=== PATIENT | male | born 1970 | race African-American/Black ===

== ENCOUNTER 2021-03-13 12:49 | Inpatient (IN) | payer OTHER ==
[2021-03-13 15:47] VITALS: BMI 38.0
[2021-03-13] MEDS ORDERED: ACETAMINOPHEN 325 MG TABLET (FP) PO PRN ×2 (19:40)
[2021-03-13] MEDS ORDERED: MAG HYDROX/AL HYDROX/SIMETH 30 ML UNIT-DOSE CUP PO PRN (19:40)
[2021-03-13] MEDS ORDERED: NICOTINE 10 MG CARTRIDGE (INHALER) IH PRN (19:40)
[2021-03-13] MEDS ORDERED: diazePAM 5 MG TABLET PO PRN (19:40)
[2021-03-13] MEDS ORDERED: MAGNESIUM HYDROX 2400MG/30ML ORAL SUSPENSION 30 ML CUP PO PRN (19:40)
[2021-03-13] MEDS ORDERED: IBUPROFEN 400 MG TABLET (FP) PO PRN (19:40)
[2021-03-13] MEDS ORDERED: MAGNESIUM CITRATE 300 ML BOTTLE PO PRN (19:40)
[2021-03-13] MEDS ORDERED: ONDANSETRON *ODT* 4 MG TABLET SL PRN (19:40)
[2021-03-13] MEDS ORDERED: BISMUTH SUBSALICYLATE 524 MG/30 ML PO PRN (19:40)
[2021-03-13] MEDS ORDERED: NICOTINE POLACRILEX 2 MG GUM BUC PRN (19:40)
[2021-03-13] MEDS ORDERED: MENTHOL/PHENOL 1 EACH UD MM PRN (19:40)
[2021-03-13] MEDS ORDERED: METHOCARBAMOL 500 MG TABLET PO PRN (19:40)
[2021-03-13] MEDS ORDERED: diazePAM 5 MG TABLET ONE (23:31)
[2021-03-13] MEDS ORDERED: hydrOXYzine PAMOATE 25 MG CAPSULE (FP) PO ONE (23:31)
[2021-03-13] MEDS: MELATONIN 5 MG TABLETS PO SCH (23:34)
[2021-03-13] MEDS: diazePAM 5 MG TABLET PO SCH (23:35)
[2021-03-13] MEDS: hydrOXYzine PAMOATE 25 MG CAPSULE (FP) PO SCH (23:35)
[2021-03-13] MEDS: THIAMINE HCL 100 MG TABLET (FP) PO SCH (23:35)
[2021-03-14] MEDS ORDERED: diazePAM 5 MG TABLET ONE ×2 (06:07→11:20)
[2021-03-14] MEDS ORDERED: hydrOXYzine PAMOATE 25 MG CAPSULE (FP) PO ONE ×2 (06:07→11:21)
[2021-03-14] MEDS: diazePAM 5 MG TABLET PO SCH ×4 (06:19→23:24)
[2021-03-14] MEDS: hydrOXYzine PAMOATE 25 MG CAPSULE (FP) PO SCH ×5 (06:19→23:24)
[2021-03-14] MEDS: PRENATAL VITAMINS W/ FOLIC ACID TABLET (FP) PO SCH (11:19)
[2021-03-14] MEDS: MELATONIN 5 MG TABLETS PO SCH (23:23)
[2021-03-14] MEDS: THIAMINE HCL 100 MG TABLET (FP) PO SCH (23:24)
[2021-03-15] MEDS: diazePAM 5 MG TABLET PO SCH ×3 (07:24→22:35)
[2021-03-15] MEDS: hydrOXYzine PAMOATE 25 MG CAPSULE (FP) PO SCH (07:25)
[2021-03-15] MEDS ORDERED: hydrOXYzine PAMOATE 25 MG CAPSULE (FP) PO PRN (09:18)
[2021-03-15] MEDS: PRENATAL VITAMINS W/ FOLIC ACID TABLET (FP) PO SCH (10:46)
[2021-03-15 15:03] LABS: HEMATOCRIT 43.9 % (35.4-49); HEMOGLOBIN 14.9 GM/dL (11.7-16.9); MCH 30.8 pg (25.7-33.7); MCHC 33.9 g/dl (32.0-35.9); MEAN CELL VOLUME 90.9 fl (80-96); MEAN PLT VOLUME 8.8 fl (7.5-11.1); PLATELET COUNT 264 10^3/uL (134-434); RBC 4.83 M/mm3 (4.00-5.60); RDW 15.5 % (11.9-15.9); WHITE BLOOD COUNT 5.1 K/mm3 (4.0-10.0)
[2021-03-15 15:09] LABS: CALCIUM 9.1 mg/dL (8.5-10.1)
[2021-03-15 15:10] LABS: ALBUMIN 3.4 g/dl (3.4-5.0); CREATININE 1.2 mg/dL (0.55-1.3)
[2021-03-15 15:14] LABS: BILIRUBIN,TOTAL 0.4 mg/dL (0.2-1); TOT PROT 6.7 g/dl (6.4-8.2)
[2021-03-15] MEDS: THIAMINE HCL 100 MG TABLET (FP) PO SCH (22:36)
[2021-03-15] MEDS: MELATONIN 5 MG TABLETS PO SCH (22:36)
[2021-03-16] MEDS: diazePAM 5 MG TABLET PO SCH ×2 (06:55→17:48)
[2021-03-16] MEDS: PRENATAL VITAMINS W/ FOLIC ACID TABLET (FP) PO SCH (09:25)
[2021-03-16] MEDS: MELATONIN 5 MG TABLETS PO SCH (22:58)
[2021-03-16] MEDS: THIAMINE HCL 100 MG TABLET (FP) PO SCH (22:58)
[2021-03-17] MEDS ORDERED: diazePAM 5 MG TABLET PO ONE (06:00)
[2021-03-17] MEDS: PRENATAL VITAMINS W/ FOLIC ACID TABLET (FP) PO SCH (10:41)
[2021-03-17 13:39] VITALS: BP 116/68; PULSE 64; TEMP 96.9
== END 2021-03-17 14:10 | disposition home or self-care (01) | DRG 774 ==
LOC: YASAS 12:49 → Y3N 03-14 12:54
PROVIDERS: ADMIT Allergy & Immunology; ATTEND Allergy & Immunology
PROC: HZ2ZZZZ Detoxification Services for Substance Abuse Treatment (ICD-10-PCS; principal; 2021-03-14)
DX: F10.230 Alcohol dependence with withdrawal, uncomplicated (principal); F14.20 Cocaine dependence, uncomplicated; F17.210 Nicotine dependence, cigarettes, uncomplicated
CPT/HCPCS: 36415; 80053; 85027; 86780; C9803; U0003; U0005